=== PATIENT | female | born 2000 | race Caucasian/White ===

== ENCOUNTER 2021-07-07 17:33 | Emergency (ER) | payer OTHER ==
[~2021-07-07] VITALS: Ht 149.8 cm; Wt 63.5 kg
== END 2021-07-07 21:09 | disposition home or self-care (01) ==
LOC: ED 17:33
DX: M54.16 Radiculopathy, lumbar region (principal)

== ENCOUNTER 2022-08-13 12:22 | Emergency (ER) | payer OTHER ==
[~2022-08-13] VITALS: Wt 61.2 kg
== END 2022-08-13 14:45 | disposition home or self-care (01) ==
LOC: ED 12:22
DX: J10.1 Influenza due to other identified influenza virus with other respiratory manifestations (principal); Z98.51 Tubal ligation status; Z87.891 Personal history of nicotine dependence; Z90.49 Acquired absence of other specified parts of digestive tract; Z20.822 Contact with and (suspected) exposure to COVID-19

== ENCOUNTER 2024-12-03 02:33 | Emergency (ER) | payer SELFPAY ==
[~2024-12-03] VITALS: Ht 165.1 cm; Wt 72.6 kg
[2024-12-03] MEDS ORDERED: Tdap Vaccine 0.5 ML SYR (Adult Vaccine) IM ONE (02:40)
[2024-12-03 02:52] LABS: BASO % 0.4 % (0.0-1.0); EOS % 0.6 % (1.0-4.0); HEMATOCRIT 39.7 % (37.0-47.0); MEAN CELL VOLUME 90.8 fl (81.0-99.0); MEAN CORPUSCULAR HGB 30.2 pg (27.0-31.0); MEAN CORPUSCULAR HGB CONC 33.2 g/dl (33.0-37.0); MEAN PLATELET VOLUME 11.3 fl (9.6-12.3); MONO # 0.4 10*3/uL (0.1-1.0); MONO % 6.5 % (3.0-9.0); NEUT # 4.3 10*3/uL (2.3-7.9); NEUT % 62.5 % (47.0-73.0); PLATELET COUNT AUTOMATED 221 10*3/uL (130-400); RED BLOOD COUNT 4.37 10*6/uL (4.10-5.10); RED CELL DISTRI WIDTH 12.4 % (0-14.5); WHITE BLOOD COUNT 6.8 10*3/uL (4.8-10.8)
[2024-12-03 03:13] LABS: ALKALINE PHOSPHATASE 61 U/L (46-116); BUN 16 mg/dl (9-23); CHLORIDE 110 mmol/L (98-107); POTASSIUM 3.4 mmol/L (3.4-5.1); SGPT/ALT 17 U/L (5-49); TOTAL PROTEIN 7.5 gm/dL (6.0-8.0)
[2024-12-03 03:14] LABS: ETHYL ALCOHOL < 3.0 mg/dl (<3)
[2024-12-03 03:40] LABS: BILIRUBIN Negative (Negative); BLOOD 1+ (Negative); CLARITY Cloudy (Clear); COLOR Yellow (Yellow); GLUCOSE Negative (Negative); KETONE 1+ (Negative); LEUKO ESTERASE 1+ (Negative); NITRITE Positive (Negative); PH 5.5 (4.5-8.0); SPECIFIC GRAVITY >= 1.030 (1.001-1.030)
[2024-12-03 03:47] LABS: URINE AMPHETAMINES Negative (1000ng/ml); URINE BARBITURATES Negative (200ng/ml); URINE BENZODIAZEPINES Negative (200ng/ml); URINE CANNABINOIDS (THC) Negative (50ng/ml); URINE COCAINE Negative (300ng/ml); URINE METHADONE Negative (300ng/ml); URINE OPIATES Negative (300ng/ml); URINE PHENCYCLIDINE Negative (25ng/ml)
[2024-12-03] MEDS ORDERED: EPINEPHrine/Lidocaine Hydroc 20 ML VIAL SC ONE (04:05)
[2024-12-03 04:06] LABS: BACTERIA 3+; RBC 16-20 rbc/hpf (0-2); WBC 21-30 wbc/hpf (0-5)
[2024-12-03] MEDS ORDERED: Ciprofloxacin Hydrochloride 500 MG TAB PO ONE (04:45)
[2024-12-03] MEDS ORDERED: Bacitracin Zinc 14 GM TUBE T ONE (04:55)
[2024-12-03] MEDS ORDERED: CEPHALEXIN500 M1 PO (09:10)
== END 2024-12-03 09:10 | disposition home or self-care (01) ==
LOC: ED 02:33
PROVIDERS: Internal Medicine
DX: S51.812A Laceration without foreign body of left forearm, initial encounter (principal); F43.20 Adjustment disorder, unspecified; Z79.899 Other long term (current) drug therapy; X78.1XXA Intentional self-harm by knife, initial encounter; Y93.89 Activity, other specified; Y92.090 Kitchen in other non-institutional residence as the place of occurrence of the external cause; Y99.8 Other external cause status

== ENCOUNTER 2025-01-27 12:29 | Emergency (ER) | payer SELFPAY ==
[~2025-01-27] VITALS: Ht 147.3 cm; Wt 71.2 kg
[~2025-01-27 12:29] MED LIST: CEPHALEXIN500 M1 PO
[2025-01-27] MEDS ORDERED: OFLOXACIN 10 ML10 M2 OT (13:05)
[2025-01-27] MEDS ORDERED: OFLOXACIN 0.3% 5 ML BOTTLE OT ONE (13:05)
== END 2025-01-27 13:09 | disposition home or self-care (01) ==
LOC: ED 12:29
DX: H60.92 Unspecified otitis externa, left ear (principal); Z90.89 Acquired absence of other organs; Z79.2 Long term (current) use of antibiotics